=== PATIENT | female | born 1975 | race Caucasian/White ===

== ENCOUNTER → 2016-11-17 | Outpatient (CLI) | payer MEDICAID | END | disposition home or self-care (01) | LOC: CFH 09:24 | PROVIDERS: ATTEND Obstetrics & Gynecology | DX: Z12.31 Encounter for screening mammogram for malignant neoplasm of breast (principal); Z80.3 Family history of malignant neoplasm of breast | CPT/HCPCS: G0202 ==

== ENCOUNTER 2018-10-27 14:14 | Emergency (ER) | payer MEDICAID ==
[~2018-10-27] VITALS: Ht 149.9 cm; Wt 78.7 kg
--- NOTE | 2018-10-27 14:56 | NUR ---
PT PLACED ON HEART MONITOR, BP CUFF, PULSE OX. PT RATES CONSTANT L SIDED CP AT 5/10, +NAUSEA, DENIES SOB. WARM BLANKET PROVIDED, CALL LIGHT WITHIN REACH.
[2018-10-27] MEDS ORDERED: KETOROLAC 30 MG/1 ML ONE (15:12)
[2018-10-27] MEDS ORDERED: ACETAMINOPHEN 500 MG TABLET ONE (15:13)
--- NOTE | 2018-10-27 15:21 | NUR ---
PT BACK FROM XR, MEDICATED PER ERP ORDER FOR 5/10 CHEST, SHOULDER, BACK PAIN. CALL LIGHT WITHIN REACH.
[2018-10-27] MEDS ORDERED: KETOROLAC 30 MG/1 ML IM ONE (15:30)
[2018-10-27] MEDS ORDERED: ACETAMINOPHEN 500 MG TABLET PO ONE (15:30)
--- NOTE | 2018-10-27 15:30 | NUR ---
LAB IN TO DRAW.
[2018-10-27 15:44] LABS: BASOPHILS # (AUTO) 0.03 x10^3/uL (0-0.1); BASOPHILS % (AUTO) 0 % (0-1); EOSINOPHILS # (AUTO) 0.09 x10^3/uL (0-0.4); EOSINOPHILS % (AUTO) 1 % (1-7); LYMPHOCYTES % (AUTO) 27 % (22-44); MD NO; MEAN CORPUSCULAR HEMOGLOBIN 27.9 pg (27.0-34.8); MEAN CORPUSCULAR VOLUME 84.7 fL (80-100); MEAN PLATELET VOLUME 10.1 fL (7.4-10.4); MONOCYTES # (AUTO) 0.36 x10^3/uL (0.2-0.8); MONOCYTES % (AUTO) 6 % (2-9); NEUTROPHILS # (AUTO) 4.22 x10^3/uL (1.8-6.8); NEUTROPHILS % (AUTO) 66 % (42-75); PLATELET COUNT 196 x10^3/uL (130-400); RED BLOOD COUNT 5.02 x10^6/uL (3.82-5.3); RED CELL DISTRIBUTION WIDTH 13.2 % (9.6-15.2)
[2018-10-27 15:52] LABS: ANION GAP 7 mmol/L (5-15); CALCIUM 9.1 mg/dL (8.5-10.1); CHLORIDE 106 mmol/L (98-107)
[2018-10-27 15:56] LABS: TROPONIN I < 0.015 ng/mL (0.000-0.045)
[2018-10-27 16:18] VITALS: BP 116/74
--- NOTE | 2018-10-27 16:19 | NUR ---
Patient/Caregiver given discharge instructions and they have confirmed that they understand the instructions. Patient ambulatory with steady gait. Pt left with all personal belongings.
== END 2018-10-27 16:27 | disposition home or self-care (01) ==
LOC: ED 16:15
DX: R07.89 Other chest pain (principal); M25.512 Pain in left shoulder
CPT/HCPCS: 36415; 71046; 80048; 82040; 84484; 85025; 93005; 96372; 99284; J1885

== ENCOUNTER 2021-03-17 07:25 | Outpatient (CLI) | payer MEDICAID | END 2021-03-17 23:59 | disposition home or self-care (01) | LOC: CFH 07:25 | PROVIDERS: ATTEND Internal Medicine Cardiovascular Disease | DX: R00.2 Palpitations (principal) | CPT/HCPCS: 93306; 93356 ==